=== PATIENT | female | born 1950 | race Caucasian/White ===

== ENCOUNTER 2016-10-01 09:57 | Emergency (ER) | payer OTHER, MEDICARE ==
[~2016-10-01] VITALS: Ht 160 cm; Wt 80.3 kg
[~2016-10-01 09:57] MED LIST: ACTOS15 MG PO; ASPIRIN EC325 MG PO; CALCIUM 600 +1 EA15 PO; CELECOXIB200 MG PO; CHOLESTEROL PILL; ENDOCET 5-3251 EACH PO; FORTAMET1000 M1 PO; GLIMEPIRIDE4 MG PO; GLIPIZIDE ER2.5 M1 PO; HYDROCHLOROTH12.5 M3 PO; HYDROCODON-ACE1 EAC7 PO; IRON325 M1 PO; LISINOPRIL20 MG PO; MAGNESIUM250 MG PO; MEDROL DOSEPAK4 MG PO; METFORMIN HCL1000 MG PO; OXYCONTIN10 MG PO; PRAVACHOL40 MG PO; [UNRECOGNIZED DRUG - REMARK]
[2016-10-01] MEDS ORDERED: ZITHROMAX500 MG PO (11:13)
[2016-10-01 12:17] VITALS: BP 99/80
== END 2016-10-01 12:18 | disposition home or self-care (01) ==
LOC: EME 09:57
DX: J02.0 Streptococcal pharyngitis (principal); I10 Essential (primary) hypertension; E11.9 Type 2 diabetes mellitus without complications; Z79.84 Long term (current) use of oral hypoglycemic drugs; E78.5 Hyperlipidemia, unspecified; Z88.0 Allergy status to penicillin
CPT/HCPCS: 71020; 87651 90; 99281; 99283